=== PATIENT | female | born 1995 | race Caucasian/White ===

== ENCOUNTER 2016-05-14 15:19 | Emergency (ER) | payer BC ==
--- NOTE | 2016-05-14 18:10 | RAD ---
INDICATION: Chest pressure COMPARISON: November 07, 2015 TECHNIQUE: An AP portable view obtained at 1738 hours is submitted. FINDINGS: Bones/Soft Tissues: There are no acute bony findings. Cardiomediastinal: The cardiomediastinal silhouette is normal. Lungs: There are no infiltrates. Pleura: There are no pleural effusions. Other: None IMPRESSION: NORMAL CHEST.
[2016-05-14 18:16] LABS: Hematocrit 34 % (35-47); Hemoglobin 10.9 g/dl (12.0-16.0); Mean Corpuscular HGB Conc 32 g/dl (31-36); Mean Corpuscular Hemoglobin 29 pg (27-31); Mean Corpuscular Volume 91 fL (80-97); Mean Platelet Volume 6 um3 (7.4-10.4); Red Cell Distribution Width 15 % (10.5-15); White Blood Count 12.1 10^3/ul (3.5-10.8)
--- NOTE | 2016-05-14 18:28 | ED ---
HPI Chest Pain - HPI Summary HPI Summary: 20 female presents accompanied by her mother complaining of sub-sternal chest pain that began around 2pm this afternoon 05/14/16 when she woke up from her nap. Patient describes the pain to be a pressure that comes and goes. Her last episode was approximately 15 minutes long on the drive over to the ED, just prior to arrival. She has not had the chest pain/pressure since. She denies any radiation of pain. Admits to burping. Admits to nausea but is already taking nausea medication due to her IBS and her recent flare up so she is not sure if the nausea is from that. She is not currently nauseous. Pain is non- reproducible on exam. States she felt as though she was breathing faster when she was having the chest pain however did not have any difficulty breathing or SOB. No diaphoresis or vomiting. Admits to having diarrhea with blood in stool due to her "Flare up of IBS". Also states she has had a sore throat but has resolved. Mother states summer patient was admitted to hospital due to mis-diagnosed PE that actually turned out to be pneumonia, pancreatitis and also has been seeing GI for bowel issues that was thought to be UC however they were told it was IBS. She has been taking a muscle relaxer that has seemed to help her IBS. Recent flare that has been getting better over the past 2 weeks. Mother and patient state she is very sedentary and naps a lot. Before taking her nap earlier today she had eaten some burritos. Nothing made pain worse and she did not try taking any medication for it. Does not use alcohol or tobacco. Complicated PMHx. Does not appear to be cardiac in nature at this time. Currently on menstrual cycle. No fever/chills. - History of Current Complaint Chief Complaint: EDChestWallPain Time Seen by Provider: 05/14/16 16:12 Hx Obtained From: Patient, Family/Tire Sorter - mother Onset/Duration: Started Hours Ago Timing: Intermittent, Lasting Minutes Initial Severity: Mild Current Severity: Mild Pain Intensity: 2 Pain Scale Used: 0-10 Numeric Chest Pain Location: Mid Sternal Chest Pain Radiates: No Character: Burning, Pressure/Squeezing Aggravating Factor(s): Nothing Alleviating Factor(s): Upright Position Associated Signs and Symptoms: Positive: Chest Pain, Anxiety, Nausea. Negative : Headaches, Weakness, Shortness of Breath, Diaphoresis, Productive Cough, Nonproductive Cough, Hemoptysis, Calf Pain/Swelling, Vomiting, Nasal Congestion - Risk Factors Pulmonary Embolism Risk Factors: Recent Bedrest - sedentary lifestyle, Previous PE - seems to have been a mis-diagnosis per patient and mother - Additional Pertinent History Primary Care Physician: XAVIER - Allergy/Home Medications Allergies/Adverse Reactions: Allergies Allergy/AdvReac Type Severity Reaction Status Date / Time Aspirin Allergy Unknown Verified 11/02/15 09:29 Reaction Details Cinnamon Allergy Diarrhea Verified 11/02/15 09:29 Aspriso Allergy Unknown Uncoded 11/15/15 13:40 Reaction Details PMH/Surg Hx/FS Hx/Imm Hx Endocrine/Hematology History: Reports: Hx Anemia - temporary, r/t ulcerative colitis, Other 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 Denies: Hx Diabetes Cardiovascular History: Denies: Hx Hypertension, Hx Pacemaker/ICD Respiratory History: Reports: Hx Asthma, Hx Pneumonia GI History: Reports: Other GI Disorders - ULCERATIVE COLITIS versus IBS, PANCREATITIS History: Reports: Other Problems/Disorders - CONGENITAL ADRENAL HYPERPLASIA Denies: Hx Renal Disease Sensory History: Denies: Hx Hearing Aid Psychiatric History: Reports: Hx Anxiety, Hx Panic Disorder - ANXIETY, Hx Bipolar Disorder Infectious Disease History: No Infectious Disease History: Denies: Traveled Outside the [place] in Last 30 Days - Family History Known Family History: Positive: None, Other - RHEUMATIC FEVER, ADENOCARCINOMA Negative: Hypertension, Diabetes - Social History Alcohol Use: None Hx Substance Use: No Substance Use Type: Reports: None Hx Tobacco Use: No Smoking Status (MU): Never Smoked Tobacco Review of Systems Constitutional: Negative Eyes: Negative ENT: Negative Positive: Chest Pain Respiratory: Negative Positive: Abdominal Pain - cramping due to flare of what patient believes to be IBS, Diarrhea, Nausea Genitourinary: Negative Musculoskeletal: Negative Skin: Negative Neurological: Negative Psychological: Normal All Other Systems Reviewed And Are Negative: Yes Physical Exam Triage Information Reviewed: Yes Vital Signs On Initial Exam: Initial Vitals Temp Pulse Resp BP Pulse Ox 97.3 F 127 12 127/82 99 05/14/16 15:23 05/14/16 15:23 05/14/16 15:23 05/14/16 15:23 05/14/16 15:23 tachycarida noted. no signs of hypoxia. Mother states her HR is usually elevated. compared with previous visits and is similar range. Vital Signs Reviewed: Yes Appearance: Positive: Well-Appearing, No Pain Distress, Well-Nourished Skin: Positive: Warm, Skin Color Reflects Adequate Perfusion, Dry Head/Face: Positive: Normal Head/Face Inspection Eyes: Positive: Normal, EOMI, DRISS, Conjunctiva Clear ENT: Positive: Normal ENT inspection, Hearing grossly normal, Pharynx normal, TMs normal Dental: Negative: Cervical Lymphadenopathy Neck: Positive: Supple, Nontender, No Lymphadenopathy Respiratory/Lung Sounds: Positive: Clear to Auscultation, Breath Sounds Present Cardiovascular: Positive: Normal, Pulses are Symmetrical in both Upper and Lower Extremities, Tachycardia - normal sinus tachycardia on EKG. Negative: Murmur Abdomen Description: Positive: Nontender, No Organomegaly, Soft. Negative: CVA Tenderness (R), CVA Tenderness (L), Distended, Guarding Bowel Sounds: Positive: Present Musculoskeletal: Positive: Normal, Strength/ROM Intact, Other - non-tender Neurological: Positive: Normal, Sensory/Motor Intact, Alert, Oriented to Person Place, Time, CN Intact II-III, Reflexes Intact, NV Bundle Intact Distally, Normal Gait Psychiatric: Positive: Normal, Affect/Mood Appropriate - [place] Coma Scale Coma Scale Total: 15 Diagnostics - Vital Signs Vital Signs Temp Pulse Resp BP Pulse Ox 05/14/16 17:00 111 23 98 05/14/16 16:33 118 22 96 05/14/16 15:23 97.3 F 127 12 127/82 99 - Laboratory Lab Results: Lab Results 05/14/16 Range/Units 17:57 WBC 12.1 H (3.5-10.8) 10^3/ul RBC 3.70 L (4.0-5.4) 10^6/ul Hgb 10.9 L (12.0-16.0) g/dl Hct 34 L (35-47) % MCV 91 (80-97) fL MCH 29 (27-31) pg MCHC 32 (31-36) g/dl RDW 15 (10.5-15) % Plt Count 561 H (150-450) 10^3/ul MPV 6 L (7.4-10.4) um3 Neut % (Auto) 61.4 (38-83) % Lymph % (Auto) 20.6 L (25-47) % [place] % (Auto) 8.3 (1-9) % Eos % (Auto) 9.1 H (0-6) % Baso % (Auto) 0.6 (0-2) % Absolute Neuts (auto) 7.5 (1.5-7.7) 10^3/ul Absolute Lymphs (auto) 2.5 (1.0-4.8) 10^3/ul Absolute Monos (auto) 1.0 H (0-0.8) 10^3/ul Absolute Eos (auto) 1.1 H (0-0.6) 10^3/ul Absolute Basos (auto) 0.1 (0-0.2) 10^3/ul Absolute Nucleated RBC 0 10^3/ul Nucleated RBC % 0 Result Diagrams: 05/14/16 20:42 05/14/16 17:57 Lab Statement: Any lab studies that have been ordered have been reviewed, and results considered in the medical decision making process. - Radiology chest x-ray Xray Interpretation: No Acute Changes - NORMAL CHEST. Radiology Interpretation Completed By: Radiologist - CT CTA Chest CT Interpretation: No Acute Changes - NO CT EVIDENCE OF ACUTE PULMONARY EMBOLIC DISEASE. LUNGS CLEAR. CT Interpretation Completed By: Radiologist Chest Pain Course/Dx - Course Course Of Treatment: EKG, CBC, CMP, TSH, D-Dimer, Chest X-ray ordered. According to Wells and PERC criteria and elevated D-Dimer CTA of chest was obtained. Imagining studies were negative ruling out PE, pneumonia, CHF, cardiac disease. EKG normal sinus tachycardia no signs of pericarditis, NM, or cardiac abnormalities. Labs showed high white count and mild anemia. Patient is having GI flare and is currently on her menstrual cycle. she is currently taking iron pills to help with her chronic anemia. a repeat CBC with be done to ensure it is not dropping and hypovolemia is causing the tachycardia. Patient and mother states she usually has a higher HR and is her normal. TSH was in normal range. CMP unremarkable. Appears to be symptoms of GERD and non-cardiac at this time. Patient was told the different treatment regimens of GERD and to follow up with GI to better resolve her IBS versus UC if symptoms return. Aware of worsening signs and symptoms to watch out for. continue taking iron pills at home to help with anemia during menstrual cycle. due to no pain or nausea at this time patient did not want/need medication. 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 - Chest Pain Differential Diagnosis/HQI/PQRI: Acute NM, Angina, CHF, Chest Wall, GI Disease - GERD, Lower Respiratory Infection, Pulmonary Embolism - Diagnoses Provider Diagnoses: GERD (gastroesophageal reflux disease) - Provider Notifications Discussed Care Of Patient With: Dr Suárez also examined patient. Discussed plan of care with him Discharge - Discharge Plan Condition: Stable Disposition: HOME Patient Education Materials: Gastroesophageal Reflux Disease (ED) Referrals: Kathryn Daniels MD [Primary Care Provider] - Additional Instructions: If you have similar symptoms try taking Tums or OTC Acid reflux antacids such as Nexium. Avoid acidic/citric foods, alcohol chocolate and laying down after eating to avoid symptoms of heart burn. Continue taking Iron pills to improve anemia and at home medications as prescribed. If chest pain persists or worsens and you develop new symptoms of difficulty breathing or radiation of pain please return to ED and seek medical attention immediately. Follow-up with your GI doctor to better resolve and further evaluate your recent flare-up symptoms.
[2016-05-14 18:35] LABS: Albumin 3.7 g/dL (3.2-5.2); BUN/Creatinine Ratio 10.3 (8-20); Calcium 9.2 mg/dL (8.6-10.3); EGFR African American 140.5 (>60); EGFR Non-African American 109.2 (>60); Potassium 4.6 mmol/L (3.5-5.0); Total Bilirubin 0.2 mg/dL (0.2-1.0); Total Protein 7.7 g/dL (6.4-8.9)
[2016-05-14 18:44] LABS: TSH (Thyroid Stimulating Horm) 1.13 mcIU/mL (0.34-5.60)
[2016-05-14] MEDS ORDERED: Iohexol 350* (CONTRAST) 500 ML MDV IV ONE (18:48)
--- NOTE | 2016-05-14 19:13 | RAD ---
INDICATION: Chest pain. Short of breath. Evaluate for pulmonary embolus. COMPARISON: Chest x-ray May 14, 2016 TECHNIQUE: Axial source images were obtained from the thoracic inlet to the hemidiaphragms following administration of [address] angiographic technique was utilized. Coronal and sagittal reconstructed images were acquired. CHEST FINDINGS: Neck/thyroid: The visualized neck to include the thyroid appear normal. Chest wall: There are no acute abnormalities of the bony thorax or chest wall. There is no supraclavicular, infraclavicular, or axillary lymphadenopathy. Lungs : There are no pulmonary parenchymal masses or infiltrates. The pulmonary interstitium appears normal. There are no endobronchial lesions. Cardiomediastinal structures: There is no CT evidence of acute pulmonary embolic disease. The heart is normal in size. There is no pericardial effusion. There is no evidence of aortic aneurysm or dissection. There is no mediastinal or hilar adenopathy. The esophagus appears normal. Pleura : There are no pleural-based masses or effusions. Other: None. IMPRESSION: NO CT EVIDENCE OF ACUTE PULMONARY EMBOLIC DISEASE. LUNGS CLEAR.
[2016-05-14 20:48] LABS: Hematocrit 36 % (35-47); Hemoglobin 11.6 g/dl (12.0-16.0); Mean Corpuscular HGB Conc 32 g/dl (31-36); Mean Corpuscular Hemoglobin 29 pg (27-31); Mean Corpuscular Volume 90 fL (80-97); Mean Platelet Volume 6 um3 (7.4-10.4); Red Blood Count 4.01 10^6/ul (4.0-5.4); Red Cell Distribution Width 15 % (10.5-15); White Blood Count 11.1 10^3/ul (3.5-10.8)
[2016-05-14 22:08] VITALS: BP 100/65
== END 2016-05-14 22:07 | disposition home or self-care (01) ==
LOC: ED 15:19
DX: K21.9 Gastro-esophageal reflux disease without esophagitis (principal); R10.9 Unspecified abdominal pain; R07.9 Chest pain, unspecified; F41.9 Anxiety disorder, unspecified; R11.0 Nausea
CPT/HCPCS: 36415; 71010; 71275; 80053; 83605; 83880; 84443; 84484; 85025; 85027; 85379; 87040; 93005; 99282; 99283; Q9967